=== PATIENT | female | born 1965 | race Caucasian/White ===

== ENCOUNTER 2018-02-28 17:52 | Emergency (ER) | payer OTHER ==
[2018-02-28] MEDS ORDERED: BUDE10.2 INH (17:59)
[2018-02-28] MEDS ORDERED: MONT10TA PO (17:59)
[2018-02-28] MEDS ORDERED: ONDANSETRON 4 MG/2 ML VIAL IVP ONE (18:00)
[2018-02-28] MEDS ORDERED: MORPHINE 4 MG/ML SDV IVP ONE (18:00)
--- NOTE | 2018-02-28 18:18 | ER Report ---
History and Physical Time Seen By MD: 18:08 Hx. of Stated Complaint: RT LOWER LEG INJURY FROM SKIING HPI/ROS CHIEF COMPLAINT: knee/lower leg injury from skiing accident HISTORY OF PRESENT ILLNESS: This is a 52 year old female. Last run of the day, went down. Severe knee and lower leg pain. Can move foot and toes. Normal sensation. Swelling and pain around knee and upper part of lower leg. Severe pain with any movement. Allergies: Coded Allergies: Sulfa (Sulfonamide Antibiotics) (Verified Allergy, Intermediate, 02/28/18) Home Meds Reported Medications Budesonide/Formoterol Fumarate (SYMBICORT 160-4.5 MCG INHALER) 10.2 Gm Inh, 10.2 GM INH, INH 02/28/18 Montelukast Sodium (SINGULAIR) 10 Mg Tablet, 1 TAB PO QDAY, TAB 02/28/18 Past Medical/Surgical History Asthma Unable To Obtain Past Medical: Refused Reviewed Nurses Notes: Yes Hx Substance Use Disorder: No Hx Alcohol Use: Yes (SOCIALLY) Constitutional Vital Sign - Last 24 Hours 02/28/18 02/28/18 02/28/18 02/28/18 17:52 17:55 17:58 17:59 Temp 98.2 Pulse ??? 72 Resp 18 B/P (MAP) 147/87 137/83 (101) 147/87 (107) Pulse Ox 90 O2 Delivery Room Air 02/28/18 02/28/18 02/28/18 02/28/18 18:07 18:22 18:30 18:37 Pulse 77 76 82 B/P (MAP) ???/??? (1955) Pulse Ox 92 85 89 02/28/18 02/28/18 02/28/18 02/28/18 18:39 18:52 19:00 19:07 Pulse 78 71 B/P (MAP) 124/107 (113) 129/77 (94) Pulse Ox 88 89 02/28/18 02/28/18 02/28/18 02/28/18 19:22 19:30 19:37 19:40 Pulse 86 84 B/P (MAP) 126/96 (106) Pulse Ox 81 94 O2 Flow Rate 2.0 02/28/18 02/28/18 02/28/18 02/28/18 19:42 19:57 20:00 20:05 Pulse 74 ??? 81 B/P (MAP) 147/90 (109) Pulse Ox 95 91 02/28/18 02/28/18 02/28/18 02/28/18 20:20 20:30 20:35 20:50 Pulse 81 66 88 B/P (MAP) 109/68 (82) Pulse Ox 93 94 93 Physical Exam General Appearance: The patient is alert. Acute distress due to pain. Eyes: Pupils are equal, round. No pallor, injection or icterus. Respiratory: Breathing easily. Neurological: Alert and oriented x3. Has normal movement and sensation in lower leg. Skin: Warm and dry. No rashes. No laceration of breakdown. Does have bruising. Musculoskeletal: Tender over the area of the knee and proximal aspect of lower leg. Very swollen. Pain with palpation or movement. DIFFERENTIAL DIAGNOSIS: After history and physical exam, differential diagnosis was considered for Knee/lower leg injury concerning for fracture. Medical Decision Making EKG/Imaging Imaging Examination: TIBIA FIBULA RIGHT, KNEE 3 VIEW RIGHT Comparison: None. History: Fall skiing. Lower leg pain and swelling. Findings: 3 views right knee: The distal femur and patella are unremarkable. Proximal right tibia diametaphysis comminuted, displaced, and mildly angulated intra- articular fracture with mild articular surface irregularity along the central and lateral tibial plateau. Femorotibial alignment is otherwise maintained. Joint fluid. Diffuse soft tissue swelling. 2 views right tibia-fibula: The remainder of the tibia is intact. No fibular fracture is identified. Ankle alignment is within normal limits. IMPRESSION: Right proximal tibia diametaphysis comminuted, displaced, and mildly angulated intra-articular fracture. Report Dictated By: Dariusz Delgado MD at 02/28/2018 7:04 PM Examination: TIBIA FIBULA RIGHT, KNEE 3 VIEW RIGHT Comparison: None. History: Fall skiing. Lower leg pain and swelling. Findings: 3 views right knee: The distal femur and patella are unremarkable. Proximal right tibia diametaphysis comminuted, displaced, and mildly angulated intra- articular fracture with mild articular surface irregularity along the central and lateral tibial plateau. Femorotibial alignment is otherwise maintained. Joint fluid. Diffuse soft tissue swelling. 2 views right tibia-fibula: The remainder of the tibia is intact. No fibular fracture is identified. Ankle alignment is within normal limits. IMPRESSION: Right proximal tibia diametaphysis comminuted, displaced, and mildly angulated intra-articular fracture. Report Dictated By: Dariusz Delgado MD at 02/28/2018 7:04 PM ED Course/Re-evaluation Clinical Indication for ER IV: IV Access ED Course Patient had x-ray showing tibial plateau fracture. Discussed with Dr. Jacobs who viewed the images remotely. Recommended transfer south to the trauma service. Patient had initial dose of Morphine on arrival. Then a dose of Dilaudid. Pain controlled as long as not moving. Another dose of Dilaudid 1mg was used when applying the knee immobilizer. Patient had normal neurovascular status on re- check after this. A final dose of pain medicine was given before transfer. Decision to Disposition Date: Feb 28, 2018 Decision to Disposition Time: 19:43 Transfer Facility Patient was transferred to [facility] via ambulance. Recommended for trauma service after review with orthopedic surgery here. The transfer was emergent, and was required because the capabilities of the receiving hospital. Consent for transfer was obtained from the patient. See EMTALA for transfer orders. Depart Departure Latest Vital Signs Vital Signs Date Time Temp Pulse Resp B/P (MAP) Pulse Ox O2 Delivery O2 Flow Rate FiO2 02/28/18 20:50 88 93 02/28/18 20:30 109/68 (82) 02/28/18 19:40 2.0 02/28/18 17:55 98.2 18 Room Air Impression: Primary Impression: Tibial plateau fracture, right Condition: Condition Unchanged Disposition: XFER TO [facility] Problem Qualifiers Primary Impression: Tibial plateau fracture, right Encounter type: initial encounter Fracture type: closed Qualified Codes: S82.141A - Displaced bicondylar fracture of right tibia, initial encounter for closed fracture THA DUMONT MD Feb 28, 2018 18:18
[2018-02-28] MEDS ORDERED: HYDROMORPHONE HCL 1 MG/ML SYRINGE IVP ONE ×2 (18:35→20:50)
--- NOTE | 2018-02-28 19:13 | RADIOLOGY IMAGING REPORT ---
FACILITY: [facility] PATIENT NAME: Teresa Walton : 1965 MR: [id number] V: [id number] EXAM DATE: ORDERING PHYSICIAN: THA DUMONT TECHNOLOGIST: Location: [facility] Patient: Teresa Walton : 1965 Visit/Account:[id number] Date of Sevice: 02/28/2018 Examination: TIBIA FIBULA RIGHT, KNEE 3 VIEW RIGHT Comparison: None. History: Fall skiing. Lower leg pain and swelling. Findings: 3 views right knee: The distal femur and patella are unremarkable. Proximal right tibia diametaphysi s comminuted, displaced, and mildly angulated intra-articular fracture with mild articular surface ir regularity along the central and lateral tibial plateau. Femorotibial alignment is otherwise maintai majo. Joint fluid. Diffuse soft tissue swelling. 2 views right tibia-fibula: The remainder of the tibia is intact. No fibular fracture is identified. Ankle alignment is within normal limits. IMPRESSION: Right proximal tibia diametaphysis comminuted, displaced, and mildly angulated intra-articular fractu re. Report Dictated By: Dariusz Delgado MD at 02/28/2018 7:04 PM Report E-Signed By: Dariuzs Delgado MD at 02/28/2018 7:08 PM WSN:DUC
--- NOTE | 2018-02-28 19:13 | RADIOLOGY IMAGING REPORT ---
FACILITY: [facility] [place] PATIENT NAME: Teresa Walton : 1965 MR: [id number] V: [id number] EXAM DATE: ORDERING PHYSICIAN: THA DUOMNT TECHNOLOGIST: Location: [facility] [place] Patient: Teresa Walton : 1965 Visit/Account:[id number] Date of Sevice: 02/28/2018 Examination: TIBIA FIBULA RIGHT, KNEE 3 VIEW RIGHT Comparison: None. History: Fall skiing. Lower leg pain and swelling. Findings: 3 views right knee: The distal femur and patella are unremarkable. Proximal right tibia diametaphysi s comminuted, displaced, and mildly angulated intra-articular fracture with mild articular surface ir regularity along the central and lateral tibial plateau. Femorotibial alignment is otherwise maintai majo. Joint fluid. Diffuse soft tissue swelling. 2 views right tibia-fibula: The remainder of the tibia is intact. No fibular fracture is identified. Ankle alignment is within normal limits. IMPRESSION: Right proximal tibia diametaphysis comminuted, displaced, and mildly angulated intra-articular fractu re. Report Dictated By: Dariusz Delgado MD at 02/28/2018 7:04 PM Report E-Signed By: Dariusz Delgado MD at 02/28/2018 7:08 PM WSN:DUC
[2018-02-28] MEDS: HYDROMORPHONE HCL 1 MG/ML SYRINGE IVP ONE (19:50)
[2018-02-28 20:30] VITALS: BP 109/68
== END 2018-02-28 21:07 | disposition short-term general hospital (02) ==
LOC: ER 18:28
DX: S82.141A Displaced bicondylar fracture of right tibia, initial encounter for closed fracture (principal); Y93.23 Activity, snow (alpine) (downhill) skiing, snowboarding, sledding, tobogganing and snow tubing
CPT/HCPCS: 73562; 73590; 96374; 96375; 96376; 99285; J1170; J2270; J2405; L1830

== ENCOUNTER → 2018-02-28 | Outpatient (CLI) | payer OTHER ==
[~2018-02-28] MED LIST: BUDE10.2 INH; MONT10TA PO
== END ==
LOC: AMB 20:47
PROVIDERS: ATTEND Nurse Practitioner
DX: S82.202A Unspecified fracture of shaft of left tibia, initial encounter for closed fracture (principal)
CPT/HCPCS: A0425; A0426

== ENCOUNTER → 2018-05-18 | Outpatient (CLI) | payer OTHER ==
[~2018-05-18] MED LIST changes: +ALBU8.5H IH; +AMOX-559 PO; +BUDE0.5A6 IH; +IBUP-56 PO
== END ==
LOC: LAB 15:07
PROVIDERS: ATTEND Otolaryngology
DX: J30.1 Allergic rhinitis due to pollen (principal)
CPT/HCPCS: 36415; 86003

== ENCOUNTER 2018-10-18 00:15 | Day surgery (SDC) | payer OTHER ==
[~2018-10-18] VITALS: Ht 175.3 cm; Wt 85.7 kg
[2018-10-18] MEDS ORDERED: LIDOCAINE MPF 1% 5 ML VIAL ONE (06:42)
[2018-10-18] MEDS ORDERED: ONDANSETRON 4 MG/2 ML VIAL ONE (06:42)
[2018-10-18] MEDS ORDERED: METOCLOPRAMIDE 10 MG/2 ML SDV ONE (06:42)
[2018-10-18] MEDS ORDERED: PROPOFOL EMUL(*) 10MG/ML 20 ML 20 ML ONE (06:42)
[2018-10-18] MEDS ORDERED: DEXAMETHASONE SOD 4 MG/ML VIAL ONE (06:43)
[2018-10-18] MEDS ORDERED: fentaNYL CITR 100 MCG/2 ML AMP ONE ×2 (06:43→10:39)
[2018-10-18 07:13] VITALS: BP 129/92
[2018-10-18] MEDS ORDERED: LIDO/EPI 1% MDV 1:100,000 20ML INFIL ONE ×2 (08:12→08:33)
[2018-10-18] MEDS ORDERED: OXYMETAZOLINE SPRAY 15 ML BTL ONE ×2 (08:12→08:14)
[2018-10-18] MEDS ORDERED: BACITRACIN OINT 15 GM TUBE TP ONE (08:12)
[2018-10-18] MEDS ORDERED: NS(*) 0.9% 250 ML BAG 250 ML ONE (08:13)
[2018-10-18] MEDS ORDERED: MUPIROCIN 2% OINT 22 GM TUBE TP ONE (08:13)
[2018-10-18] MEDS ORDERED: LIDOCAINE/SOD BICARB 8.4% SYR ID ONE (10:05)
[2018-10-18] MEDS ORDERED: FAMOTIDINE 20 MG TAB PO ONE (10:05)
[2018-10-18] MEDS ORDERED: NORMOSOL R SOLN(*) 1000 ML BAG 1,000 ML IV PRN (10:05)
[2018-10-18] MEDS ORDERED: MIDAZOLAM 2 MG/2 ML VIAL IVP PRN (10:05)
[2018-10-18] MEDS ORDERED: ceFAZolin(*) 2GM/D5W 50ML 50 ML IVPB ONE (10:30)
[2018-10-18] MEDS ORDERED: HYDR-653 PO (10:36)
[2018-10-18] MEDS ORDERED: CEFU250T11 PO (10:36)
--- NOTE | 2018-10-18 10:44 | OPERATIVE REPORT 1 ---
EVENT DATE: October 18, 2018 SURGEON: Yong Antonio MD ANESTHESIOLOGIST: Jose cK MD ANESTHESIA: LMA. PREOPERATIVE DIAGNOSES 1. Bilateral nasal polyposis. 2. Frontal ethmoid, maxillary and sphenoid sinusitis. POSTOPERATIVE DIAGNOSIS 1. Bilateral nasal polyposis. 2. Frontal ethmoid, maxillary and sphenoid sinusitis. PROCEDURES PERFORMED 1. Bilateral nasal polypectomies. 2. Total ethmoidectomies. 3. Sphenoidectomies. 4. Maximal antrostomies with removal of sinus contents. 5. Right frontal sinusotomy. DESCRIPTION OF PROCEDURE The patient was positively identified in the preoperative area. She was there alone. The risks were again explained including, but not limited to, bleeding, infection, injury to the orbit, vision changes, injury to the skull base, cerebrospinal fluid leak, recurrent polyposis and/or sinusitis and those associated with anesthesia. She acknowledged understanding those risks. I again reviewed the patient's preoperative CT of the sinuses. This was notable for zepeda opacification of the sinuses. The patient was then brought back to the operative suite, laid supine on the operative table and anesthesia was administered. Once asleep, the patient was positioned and prepped and draped in the usual sterile fashion. I initially decongested both the nasal cavities with cottonoids containing Afrin solution. I began on the right side. The cottonoids were removed. Nasal endoscopy was performed. This was notable for gross polyposis. A specimen was removed and sent for permanent pathology. A nasal polypectomy was then performed with the microdebrider blade. A total ethmoidectomy was performed. A sphenoidectomy was performed. The maxillary ostium was identified and widened with a microdebrider blade. Gross polyps were removed from the maxillary sinus. The frontal sinus was then addressed with the Balloon Sinuplasty System. I then proceeded with the contralateral side. In a similar fashion, the cottonoids were removed. Nasal endoscopy was performed. Gross polyposis was encountered. A sample of the left nasal polyps were removed and sent for permanent pathology. A nasal polypectomy was then performed with a microdebrider blade. Total ethmoidectomy was performed. A sphenoidectomy was performed. The maxillary ostium was identified and widened with microdebrider blade. Gross polyps were removed from the maxillary sinus. I attempted unsuccessfully to cannulate the frontal duct, presumed to be from scarring from her previous sinus procedures. Bilateral PosiSep was placed between the middle turbinates and the lateral nasal wall bilaterally. The patient was then turned to Anesthesia for emergence. ESTIMATED BLOOD LOSS 100 cc. COMPLICATIONS None. MTDD
[2018-10-18 11:29] VITALS: BP 126/78
[2018-10-18 12:00] VITALS: BP 121/79
[2018-10-18] MEDS ORDERED: APAP/HYDROCODONE 325/5 TAB ONE (12:37)
[2018-10-18 12:45] VITALS: BP 107/76
[2018-10-18 12:46] VITALS: BP_SYST 107; BP_SYST 122; BP_DIAS 76; BP_DIAS 81
== END 2018-10-18 11:30 | disposition home or self-care (01) ==
LOC: OR 00:15
PROVIDERS: ATTEND Otolaryngology
DX: J32.8 Other chronic sinusitis (principal); J33.9 Nasal polyp, unspecified; J45.909 Unspecified asthma, uncomplicated; Z87.891 Personal history of nicotine dependence
CPT/HCPCS: 31259; 31267; 31276; 87071; 87073; 87205; 88305; J1100; J2001; J2405; J2704; J2765; J3010; J7050; 87077; 87186; J0690